=== PATIENT | male | born 1995 | race African-American/Black ===

== ENCOUNTER 2024-10-29 09:45 | Outpatient (RCR) | payer OTHER, SELFPAY ==
--- NOTE | 2024-10-29 10:58 | OPREHPOC ---
Outpatient Therapy Plan of Care This is a Multidisciplinary Plan of Care that may contain components documented by all disciplines (PT, OT, and ST.) PT Problem 1 PT Problem #1 Knowledge Deficit PT Goal 1 Goal / Goal Update 1*independent with HEP 2* pt voice correct work computer set up Target Visit 8 PT Problem 2 PT Problem #2 Pain PT Goal 1 Goal / Goal Update * pt report pain rating at worst of 4/10 Target Visit 8 PT Problem 3 PT Problem #3 Impaired Flexibility PT Goal 1 Goal / Goal Update *improve flexibility of hips and trunk, to decrease pull on lumbar spine: hamstring length with supine SLR to 60' 1* R 2* L anterior hip/quad length with prone knee flexion 120' 3* R 4* L 5* in all 4's arch/sag, pt have minimal motion over thoracic and lumbar spine Target Visit 8 PT Problem 4 PT Problem #4 Impaired Strength PT Goal 1 Goal / Goal Update *increase strength of trunk and hips, to improve posture: 1* increase thoracic strength-pt stand with shoulders in correct posture during PT session 2* increase bilateral hip extension strength to 4+ /5 Target Visit 8
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
--- NOTE | 2024-12-11 11:42 | OPREHPOC ---
Outpatient Therapy Plan of Care This is a Multidisciplinary Plan of Care that may contain components documented by all disciplines (PT, OT, and ST.) PT Problem 1 PT Problem #1 Knowledge Deficit PT Goal 1 Goal / Goal Update 1*independent with HEP 2* pt voice correct work computer set up 12-11-24 d/c goals not addressed pt called and canceled PT Target Visit 8 PT Problem 2 PT Problem #2 Pain PT Goal 1 Goal / Goal Update * pt report pain rating at worst of 4/10 12-11-24 d/c goals not addressed pt called and canceled PT Target Visit 8 PT Problem 3 PT Problem #3 Impaired Flexibility PT Goal 1 Goal / Goal Update *improve flexibility of hips and trunk, to decrease pull on lumbar spine: hamstring length with supine SLR to 60' 1* R 2* L anterior hip/quad length with prone knee flexion 120' 12-11-24 d/c goals not addressed pt called and canceled PT 3* R 4* L 5* in all 4's arch/sag, pt have minimal motion over thoracic and lumbar spine Target Visit 8 PT Problem 4 PT Problem #4 Impaired Strength PT Goal 1 Goal / Goal Update *increase strength of trunk and hips, to improve posture: 1* increase thoracic strength-pt stand with shoulders in correct posture during PT session 2* increase bilateral hip extension strength to 4+ /5 12-11-24 d/c goals not addressed pt called and canceled PT Target Visit 8
--- NOTE | 2024-12-11 11:42 | PTOPDC ---
Assessment and note entered by Sahra Ohara, PT Assessment Status Discharge - Pt Not Present ICD-10 Condition Codes (PT) Pain in low back M54.50 Onset about past year Subjective Information pt was not seen this date Assessment PT Clinical Summary Pako has received the PT evaluation on October 29. He did not return for treatment. Discharge PT services. The goals were not addressed. Plan of Care PT Services Indicated No
== END 2024-12-11 14:47 | disposition home or self-care (01) ==
LOC: ANHPT 09:45
PROVIDERS: PCP Internal Medicine Infectious Disease; Visit Provider Internal Medicine Infectious Disease
DX: G89.29 Other chronic pain (principal)
CPT/HCPCS: 97110; 97161; 97530